=== PATIENT | female | born 1980 | race African-American/Black ===

== ENCOUNTER → 2021-03-14 12:46 | Outpatient (CLI) | payer OTHER, SELFPAY ==
--- NOTE | ~2021-03-14 | MM_ITS ---
EXAMINATION: MM screening marlyn BI w lo HISTORY: Screening TECHNIQUE: Craniocaudal and mediolateral oblique 3-D tomosynthesis images were obtained and synthetic 2-D images were generated. CAD analysis was submitted and interpreted. COMPARISON: No prior mammogram is available for comparison at this institution. BREAST PARENCHYMAL COMPOSITION: There are scattered areas of fibroglandular density. FINDINGS: There is no evidence of suspicious mass, calcification, or architectural distortion to sugg est malignancy in either breast. There has been no suspicious interval change. IMPRESSION: 1. No mammographic evidence of malignancy. 2. Recommend routine screening mammography in one year. BI-RADS Category 1: Negative Reviewed, dictated and finalized at location B. [employer]
--- NOTE | ~2021-03-14 | XR_ITS ---
EXAMINATION: XR thoracic spine 2V DATE: 03/14/2021 13:14 INDICATION: Dorsalgia. TECHNIQUE: 3 views of thoracic spine standing were obtained. COMPARISON: None. FINDINGS: There is 10 degrees dextroscoliosis of thoracic spine. Vertebral body heights and intervert ebral disc heights are normal. There are endplate osteophytes at most levels. There is developmental anterior and posterior fusion at C5-C6. There is moderate cervical spondylosis. IMPRESSION: 1. Mild thoracic spondylosis and moderate cervical spondylosis. 2. Thoracic dextroscoliosis. Reviewed, dictated and finalized at location A. [employer]
== END ==
PROVIDERS: PCP Family Medicine; Visit Provider Family Medicine
DX: Z12.31 Encounter for screening mammogram for malignant neoplasm of breast (principal); M47.894 Other spondylosis, thoracic region; M47.892 Other spondylosis, cervical region
CPT/HCPCS: 72070; 77063; 77067

== ENCOUNTER → 2022-01-16 09:06 | Outpatient (CLI) | payer OTHER, SELFPAY ==
--- NOTE | ~2022-01-16 | US_ITS ---
EXAMINATION: US pelvic complete w TV DATE: 01/16/2022 09:35 INDICATION: Excessive frequent menstruation Comparison:No prior studies for comparison. TECHNIQUE: Multiple transabdominal and endovaginal sonographic images of the pelvis performed. FINDINGS: The uterus measures 8.2 x 3.7 x 5.1 cm. There are multiple nabothian cysts. The endometrial complex measures 9 mm. The right ovary measures 3 x 1.2 x 1.5 cm and the left ovary measures 2.3 x 1.8 x 1.6 cm. There is a 1.7 cm right ovarian cyst. There are small follicles in each ovary. Normal doppler signal in both ova linda. There is trace free fluid in the pelvis. There are no abnormal masses seen on either side. IMPRESSION: 1. Right ovarian cyst measuring 1.7 cm. Reviewed, dictated and finalized at location B. [employer]
== END ==
PROVIDERS: PCP Student in an Organized Health Care Education/Training Program; Visit Provider Student in an Organized Health Care Education/Training Program
DX: N92.0 Excessive and frequent menstruation with regular cycle (principal); N83.201 Unspecified ovarian cyst, right side
CPT/HCPCS: 76830; 76856

== ENCOUNTER 2022-03-24 03:47 | Day surgery (SDC) | payer OTHER, SELFPAY ==
[2022-03-15 10:42] VITALS: BMI 47.5
--- NOTE | 2022-03-15 10:43 | PC.NURSE ---
Report to the Outpatient Waiting Room, entrance under the green pavilion located off [facility], at time _0600_ on date _03/24/22_. Planned Procedure Time: __07__. Time changes happen often and if your time is changed the preop area will call you the afternoon before. - You and your visitor will be asked to self-screen and do not enter if you have any COVID symptoms. - Only one visitor is requested with a max of two and NO children visitors are allowed at this time. - The patient visitor may be requested to leave or wait in car when not with patient due to distancing restrictions. - A mask is optional within the hospital. Patients may have clear liquids (water, carbonated beverages, clear teas, apple juice) until 3 hours prior to surgery with a maximum of 20 ounces. - No food from midnight until time of surgery - Infants may have breast milk until 4 hours before surgery, infant formula 6 hours prior to surgery. - Children will be allowed to drink immediately following surgery. If applicable, please bring a bottle or sippy cup to assist with drinking. Juice, water, soda, and popsicles are readily available. For infants on formula, please bring formula the day of surgery. Pacifiers are allowed. Take the following medications with a SIP of water the morning of surgery: __NO HOME MEDS ___ Medications to discontinue per physician _Vitamins or supplements 3 DAYS PRIOR___ Date to take last dose Please no make-up, nail sudanese, hairspray, perfume, deodorant, or body powder the day of surgery. No jewelry (including any body piercings) or valuables the day of surgery, leave them at home. Please take a shower or bath the night before, or the morning of, surgery with an antibacterial soap. Wear comfortable, loose fitting clothing. Children are encouraged to wear pajamas. - Jewelry must be removed prior to entering the operating room. Rings and piercings that are not removed may be cut off. - The hospital will not accept responsibility for valuables. - Please leave all valuables, including medications, at home the day of surgery. If you are going home after surgery, a licensed fence post driver must drive you home. - NO public transportation without another adult if you receive anesthesia. - We recommend that an adult stay with you for 24 hours following discharge. - We also recommend that you do not drive, make important decision, drink alcoholic beverages, or take any drugs that were not prescribed by your health care provider for at least 24 hours after your discharge time. For Pediatric surgeries, we recommend two adults accompany the child home. Follow any additional instructions given to you from your surgeon. If you or anyone in your household have experienced Covid symptoms in the past week, please notify your surgeon or the nurse liaison at the phone number below for possible testing. Telephone instructions given to _PATIENT_and asked if any additional questions and then verbalized understanding. Patient advised to call surgeon office or pre surgery nurse liaison [phone] if any additional questions.
--- NOTE | 2022-03-23 16:44 | PM.IMHP ---
H&P: [facility] History of Present Illness Date/Time: 03/23/22 16:44 Chief Complaint: Menorrhagia Complex endometrial hyperplasia Narrative: Patient with a history of menorrhagia. Endometrial biopsy performed as part of the evaluation showed complex hyperplasia without atypia. She has been informed of treatment options to include progesterone therapy versus dilation and currettage. She was recommended for D and C hysteroscopy which she agrees to proceed with this. Review of Systems Review of Systems: All systems reviewed & are unremarkable except as noted in HPI and below Constitutional: Constitutional: Reports no additional constitutional complaints Eyes: Eyes: Reports no additional eye complaints Cardiovascular: Cardiovascular: Reports no additional cardiovascular complaints Respiratory: Respiratory: Reports no additional respiratory complaints Gastrointestinal: Gastrointestinal: Reports no additional gastrointestinal complaints Genitourinary: Genitourinary: Reports no additional female genitourinary complaints and Reports as per HPI Integumentary/Breasts: Skin/Breast: Reports system reviewed and no additional complaints, except as docu Neurologic: Reports system reviewed and no additional complaints, except as documented Psychiatric: Psychiatric: Reports no additional psychiatric complaints Hematologic/Lymphatic: Hematologic/Lymphatic: Reports no additional hematologic/lymphatic complaints [facility] Past Medical History Medical History Left leg pain Surgical History Surgical History History of tonsillectomy Family History Family History Father Diabetes mellitus Hypertension Cerebrovascular accident Grandparent Diabetes mellitus Hypertension Family history of arthritis Social History Social History Smoking status: Smoker, status unknown Alcohol intake: current Drinks per week: 1 Substance use: never Substance use type: does not use Lack of Transportation: No Lack of Food: Never True Current Housing: I Have Housing Concerned About Future Housing: No Difficulty Paying Gas/Electric Bills: No Difficulty Paying for Meds: No Currently Unemployed: No Education: Bachelor's Degree Living arrangements: with family Spiritual care concerns: No Meds Home Medications and Allergies Allergies Allergy/AdvReac Type Severity Reaction Status Date / Time Penicillins Allergy unknown Verified 03/24/22 06:48 Exam Const: General: comfortable and no acute distress Orientation/consciousness: oriented to person, oriented to place and oriented to time Eyes: General: appearance normal, both eyes and all related structures Neck: Neck: normal visual inspection Resp: Effort & Inspection: normal respiratory effort Auscultation: clear to auscultation bilaterally Cardio: Rate: regular rate Rhythm: regular rhythm GI: Inspection: normal to inspection GI Palp: No abdominal tenderness and Yes No hepatosplenomegaly present : External Female Exam: normal external appearance Speculum Exam - Vagina: normal appearance of the vagina Speculum Exam - Cervix: normal appearance of the cervix Bimanual exam- vagina & uterus: normal bimanual exam, uterine mobility normal, uterine shape normal and non-tender Bimanual Exam- Adnexa, other: no masses and No adnexal tenderness Skin: General skin exam: normal color Neuro: General: oriented to person, oriented to place and oriented to time Psych: Appearance: grossly normal Assessment and Plan Assessment and plan (1) Complex endometrial hyperplasia: Code(s): N85.01 - Benign endometrial hyperplasia Status: Acute Assessment and Plan: Will perform D and C hysteroscopy possible Aveta if necessary.
[2022-03-24 06:32] VITALS: BP 133/78; PULSE 78; RESP 16; TEMP 36.3; O2SAT 100; BMI 47.2
[2022-03-24] MEDS: LACTATED RINGERS 1,000 ML 30 ML IV CONT (06:55)
[2022-03-24] MEDS: ACETAMINOPHEN 500 MG TABLET 1000 MG PO (07:06)
--- NOTE | 2022-03-24 07:12 | P.PNAN_ITS ---
Anes - Initial Pre Proc Eval Procedure: Operation Date: 03/24/22 07:30 Proposed Procedures p Hysteroscopy Dilation and Curettage with Aveta, Possible Fibroid Removal - Conor Paarda MD Date/Time: 03/24/22 07:12 Surgeon: Conor Parada MD Pre Op Diagnosis: complex hyperplasia Patient Data Age: 41 Gender: F Height: 1.65 m Weight: 129.7 kg Allergies Allergy/AdvReac Type Severity Reaction Status Date / Time Penicillins Allergy unknown Verified 03/24/22 06:48 Patient hx anesthesia problems: none Family hx anesthesia problems: none Results Review: All pre-operative results and documents have been reviewed as part of the pre- operative evaluation. [facility] Past Medical History Medical History Left leg pain Surgical History Surgical History History of tonsillectomy Family History Family History Father Diabetes mellitus Hypertension Cerebrovascular accident Grandparent Diabetes mellitus Hypertension Family history of arthritis Social History Social History Smoking status: Smoker, status unknown Alcohol intake: current Drinks per week: 1 Substance use: never Substance use type: does not use Lack of Transportation: No Lack of Food: Never True Current Housing: I Have Housing Concerned About Future Housing: No Difficulty Paying Gas/Electric Bills: No Difficulty Paying for Meds: No Currently Unemployed: No Education: Bachelor's Degree Living arrangements: with family Spiritual care concerns: No Anes - Eval Final PreProcedure Day of Procedure 03/24/22 07:12 Patient weight: morbidly obese Heart: regular rate and rhythm Lungs: decreased breath sounds Airway: Mallampati scale class III Neurological: alert and oriented Last oral intake: >/= 8 hours ASA classification: III Emergent: no Anesthetic plan: proceed Anesthesia type and monitoring: general GIVS and standard monitoring Results Review: All pre-operative results and documents have been reviewed as part of the pre- operative evaluation. Informed Consent: The patient's anesthetic plan and its attendant risks and benefits were discussed with the patient/family/POA. Questions were solicited and answers provided to the satisfaction of the patient/family/POA.
--- NOTE | 2022-03-24 07:22 | WPDHPUPDATE1 ---
History and Physical Update Update Date/Time: 03/24/22 07:22 History and Physical has been reviewed, including an updated exam of the patient. There are NO changes in the patient's condition. Risks, benefits, and alternatives have been discussed and questions answered. Patient agrees to proceed with procedure.
[2022-03-24] MEDS: ceFAZolin 3 GM/D5W 100 ML 100 ML IVPB (07:30)
[2022-03-24] MEDS: LIDOCAINE HCL 1% PF 30 ML VIAL 10 ML INFILTRATE (07:48)
[2022-03-24 08:06] VITALS: BP 128/76; PULSE 97; RESP 14; O2SAT 95
[2022-03-24] MEDS: KETOROLAC 30 MG/ML VIAL (*BKC) IV PUSH (08:19)
--- NOTE | 2022-03-24 08:22 | W.PM.PROC2 ---
Procedure Note - Detailed Date of Procedure 03/24/22 Pre-op Diagnosis complex hyperplasia Post-op Diagnosis Other (Endometrial polypoid lesion) Procedure Performed Hysteroscopy with dilation and curretage and polypectomy. Surgeon oCnor Parada MD Anesthesia MAC (LMA) and Local Indications Menorrhagia with complex endometrial hyperplasia on endometrial biopsy. Findings Uterus sound to 7.5 cm, intracervical polyp and 2 polyps near endometrial cavity fundus. Total insufflation fluid 20-20 cc fluid deficit 130 cc. Description of Procedure After informed consent was obtained patient was taken to the operating room and adequate IV sedation was administered. She was placed in high lithotomy position and prepped and draped in sterile fashion. Attention was turned to the vagina speculum was inserted single-tooth tenaculum placed on anterior lip of the cervix 10 cc of 1% lidocaine was injected at the cervical vaginal interface at to 5 8 and 10 position. Cervix was dilated to an 8 Bond dilator. The uterus was sounded to 7.5 cm. The hysteroscope was inserted. There was noted to be a cervical polyp at the upper cervix and further assessment of the endometrial cavity showed what looked like several endometrial polyps. a stone forceps was inserted into the cervical canal and the cervical polyp was removed. The Aveta hysteroscopic instrument was then inserted and the polyps were removed. A curettage was then performed. single-tooth tenaculum taken off the cervix. Hemostasis was noted. Sponge count correct. Patient tolerated procedure well. Estimated Blood Loss 5 Drains No Packing No Pathology Yes ( Endometrial curettings with tissue removed with the Avita and cervical polyp) Complications No immediate complications Condition Stable Disposition Same day [facility] Billing Surgery - Charge Forward: Surgery Billing
[2022-03-24 08:30] VITALS: BP 147/106; PULSE 76; RESP 14; O2SAT 95
[2022-03-24] MEDS: oxyCODONE HCL (*CRX) 5 MG TAB IR PO (08:34)
[2022-03-24 09:00] VITALS: BP 133/70; PULSE 59; RESP 14
== END 2022-03-24 09:22 | disposition home or self-care (01) ==
PROVIDERS: PCP Family Medicine; Visit Provider Obstetrics & Gynecology
PROC: 0U5B8ZZ Destruction of Endometrium, Via Natural or Artificial Opening Endoscopic (ICD-10-PCS; CPT 58563; principal; 2022-03-24 07:30)
DX: N85.01 Benign endometrial hyperplasia (principal); N92.0 Excessive and frequent menstruation with regular cycle; N84.1 Polyp of cervix uteri; F17.200 Nicotine dependence, unspecified, uncomplicated; F10.90 Alcohol use, unspecified, uncomplicated; E66.01 Morbid (severe) obesity due to excess calories; Z68.42 Body mass index [BMI] 45.0-49.9, adult
CPT/HCPCS: 58558; 88305; A9270; J0690; J1885; J2250; J2405; J2704; J3010; J7120

== ENCOUNTER 2022-09-04 08:26 | Outpatient (CLI) | payer OTHER, SELFPAY | END 2022-09-04 08:27 | disposition home or self-care (01) | LOC: ANHSURGERY 08:30 | PROVIDERS: Visit Provider Obstetrics & Gynecology | DX: N85.02 Endometrial intraepithelial neoplasia [EIN] (principal) | CPT/HCPCS: 36415; 86850; 86900; 86901 ==

== ENCOUNTER 2022-09-08 03:54 | Day surgery (SDC) | payer OTHER, SELFPAY ==
[2022-08-30 15:03] VITALS: BMI 49.1
--- NOTE | 2022-08-30 15:08 | PC.NURSE ---
Report to the Outpatient Waiting Room, entrance under the green pavilion located off [facility], at time 6:00 on date 09/08/22. Planned Procedure Time: 7:30. Time changes happen often and if your time is changed the preop area will call you the afternoon before. - You and your visitor will be asked to self-screen and do not enter if you have any COVID symptoms. - A mask is optional within the hospital at this time. Patients may have clear liquids (water, carbonated beverages, clear teas, apple juice) until 3 hours prior to surgery with a maximum of 20 ounces. - No food from midnight until time of surgery Take the following medications with a SIP of water the morning of surgery: NONE DO NOT STOP ANY OF YOUR OTHER PRESCRIPTION MEDICATIONS PRIOR TO SURGERY ?EXCEPT THE FOLLOWING Medications to discontinue per physician: N/A Date to take last dose: N/A Please no make-up, nail syriac, hairspray, perfume, deodorant, or body powder the day of surgery. No jewelry (including any body piercings) or valuables the day of surgery, leave them at home. Please take a shower or bath the night before, or the morning of, surgery with an antibacterial soap. Wear comfortable, loose fitting clothing. - Jewelry must be removed prior to entering the operating room. Rings and piercings that are not removed may be cut off. - The hospital will not accept responsibility for valuables. - Please leave all valuables, including medications, at home the day of surgery. If you are going home after surgery, a licensed milk pickup truck driver must drive you home. - NO public transportation without another adult if you receive anesthesia. - We recommend that an adult stay with you for 24 hours following discharge. - We also recommend that you do not drive, make important decision, drink alcoholic beverages, or take any drugs that were not prescribed by your health care provider for at least 24 hours after your discharge time. Follow any additional instructions given to you from your surgeon. If you or anyone in your household have experienced Covid symptoms in the past week, please notify your surgeon or the nurse liaison at the phone number below for possible testing. Telephone instructions given to PT - TREVON SHEPPARD and asked if any additional questions and then verbalized understanding. Patient advised to call surgeon office or pre surgery nurse liaison [phone] if any additional questions.
--- NOTE | 2022-09-07 16:06 | PM.IMHP ---
H&P: HPI History of Present Illness Date/Time: 09/07/22 16:06 Chief Complaint: Complex hyperplasia Narrative: She is a 41-year-old G0 with history of menorrhagia. She has had a prior D and C which showed complex hyperplasia. She had a subsequent follow-up endometrial biopsy after 3 months and this endometrial biopsy showed complex endometrial hyperplasia with atypia. She is aware this is a precancerous condition and she was offered hysterectomy due to the precancerous lesion which she agreed to. We have also discussed progesterone therapy. Review of Systems Review of Systems: All systems reviewed & are unremarkable except as noted in HPI and below Cardiovascular: Cardiovascular: Reports no additional cardiovascular complaints, Denies chest pain and Denies dyspnea Respiratory: Respiratory: Reports no additional respiratory complaints and Denies dyspnea Gastrointestinal: Gastrointestinal: Reports abdominal pain, Denies change in bowel habits, Denies diarrhea, Denies nausea and Denies vomiting Genitourinary: Genitourinary: Reports pelvic pain Musculoskeletal: Musculoskeletal: Reports back pain Integumentary/Breasts: Skin/Breast: Reports system reviewed and no additional complaints, except as docu Neurologic: Reports system reviewed and no additional complaints, except as documented [facility] Past Medical History Medical History Left leg pain Surgical History Surgical History History of tonsillectomy Family History Family History Father Diabetes mellitus Hypertension Cerebrovascular accident Grandparent Diabetes mellitus Hypertension Family history of arthritis Social History Social History Smoking status: Never smoker Alcohol intake: current Drinks per week: 3 Substance use: current Substance use type: marijuana Lack of Transportation: No Lack of Food: Never True Current Housing: I Have Housing Concerned About Future Housing: No Difficulty Paying Gas/Electric Bills: No Difficulty Paying for Meds: No Currently Unemployed: No Education: Bachelor's Degree Living arrangements: with family Spiritual care concerns: No Meds Home Medications and Allergies Home Medications Medication Instructions Recorded Confirmed Type progesterone micronized 100 mg 100 mg PO QAM 30 days #30 caps 07/07/22 08/30/22 Rx capsule (Prometrium) scopolamine base 1 mg over 3 days 1 patch transdermal ONCE #1 ea 08/21/22 08/30/22 Rx transdermal patch Allergies Allergy/AdvReac Type Severity Reaction Status Date / Time Penicillins Allergy unknown Verified 08/30/22 15:02 Exam Const: Orientation/consciousness: oriented to person and oriented to place HENMT: Head: normal to inspection Eyes: General: appearance normal, both eyes and all related structures Resp: Effort & Inspection: normal respiratory effort Auscultation: clear to auscultation bilaterally Cardio: Rate: regular rate Rhythm: regular rhythm GI: Inspection: normal to inspection GI Palp: No Rebound tenderness present Neuro: General: oriented to person and oriented to place Cognition (Neuro): normal cognition Extrem: General: normal to inspection Psych: Appearance: grossly normal and well kempt Assessment and Plan Assessment and plan (1) Complex endometrial hyperplasia with atypia: Code(s): N85.02 - Endometrial intraepithelial neoplasia [EIN] Status: Acute Assessment and Plan: Will proceed with robotic assisted laparoscopic total vaginal hysterectomy with bilateral salpingectomy and possible removal of one or both ovaries if deemed necessary.
[2022-09-08] VITALS (9 sets, daily range): BP systolic 108–139; BP diastolic 58–73; PULSE 58–94; RESP 14–24; TEMP 35.9–37.5; O2SAT 94–100
--- NOTE | 2022-09-08 06:53 | WPDANESEPPF ---
Anes - Initial Pre Proc Eval Procedure: Operation Date: 09/08/22 07:30 Proposed Procedures p Robotic Total Vaginal Hysterectomy with Bilateral Salpingectomy, Possible Bilateral Oophorectomy - Conor Parada MD Date/Time: 09/08/22 06:53 Surgeon: Conor Parada MD Pre Op Diagnosis: complex hyperplasia with atypia Patient Data Age: 41 Gender: F Height: 1.65 m Weight: 133.85 kg Allergies Allergy/AdvReac Type Severity Reaction Status Date / Time Penicillins Allergy unknown Verified 08/30/22 15:02 Home Medications Medication Instructions Recorded Confirmed Type progesterone micronized 100 mg 100 mg PO QAM 30 days #30 caps 07/07/22 08/30/22 Rx capsule (Prometrium) scopolamine base 1 mg over 3 days 1 patch transdermal ONCE #1 ea 08/21/22 08/30/22 Rx transdermal patch Patient hx anesthesia problems: none Family hx anesthesia problems: none Results Review: All pre-operative results and documents have been reviewed as part of the pre-operative evaluation. [facility] Past Medical History Medical History (Updated 09/08/22 @ 06:53 by Jatinder Anton MD) Left leg pain Morbid obesity Surgical History Surgical History History of tonsillectomy Family History Family History Father Diabetes mellitus Hypertension Cerebrovascular accident Grandparent Diabetes mellitus Hypertension Family history of arthritis Social History Social History Smoking status: Never smoker Alcohol intake: current Drinks per week: 3 Substance use: current Substance use type: marijuana Lack of Transportation: No Lack of Food: Never True Current Housing: I Have Housing Concerned About Future Housing: No Difficulty Paying Gas/Electric Bills: No Difficulty Paying for Meds: No Currently Unemployed: No Education: Bachelor's Degree Living arrangements: with family Spiritual care concerns: No Anes - Eval Final PreProcedure Day of Procedure 09/08/22 06:53 Patient weight: normal Heart: regular rate and rhythm Lungs: clear to auscultation Airway: Mallampati scale class II Neurological: alert and oriented Last oral intake: >/= 8 hours ASA classification: III Emergent: no Anesthetic plan: proceed Anesthesia type and monitoring: general ETT and standard monitoring Results Review: All pre-operative results and documents have been reviewed as part of the pre-operative evaluation. Informed Consent: The patient's anesthetic plan and its attendant risks and benefits were discussed with the patient/family/POA. Questions were solicited and answers provided to the satisfaction of the patient/family/POA.
--- NOTE | 2022-09-08 07:11 | WPDHPUPDATE1 ---
History and Physical Update Update Date/Time: 09/08/22 07:11 History and Physical has been reviewed, including an updated exam of the patient. There are NO changes in the patient's condition. Risks, benefits, and alternatives have been discussed and questions answered. Patient agrees to proceed with procedure.
[2022-09-08] MEDS: LACTATED RINGERS 1,000 ML 30 ML IV CONT ×2 (07:15→10:32)
[2022-09-08] MEDS: KETOROLAC 15 MG/ML VIAL (*BKC) IV PUSH (07:15)
[2022-09-08] MEDS: ACETAMINOPHEN 500 MG TABLET 1000 MG PO (07:15)
[2022-09-08] MEDS: ceFAZolin 3 GM/D5W 100 ML 100 ML IVPB (07:30)
[2022-09-08] MEDS: BUPivacaine HCL 0.5% PF 30 ML VIAL 20 ML INFILTRATE (08:33)
--- NOTE | 2022-09-08 10:17 | PM.OP ---
Procedure Note - Brief Procedure Note - Brief Date of procedure: 09/08/22 complex hyperplasia with atypia Post-op diagnosis: Same Procedure performed: Laparoscopic assisted laparoscopic total vaginal hysterectomy with bilateral salpingectomy and left oophorectomy. Lysis of adhesions. Surgeon: Conor Parada MD Anesthesia: GETA Estimated blood loss (mL): 100 IV fluids (mL): 1,000 Urine output (mL): 400 Drains: No Packing: No Pathology: Yes (uterus with cervix and right fallopian tube and left ovary) Complications: No immediate complications Condition: Stable Disposition: PACU
[2022-09-08] MEDS: fentaNYL CITRATE INJ (*CRX) 100 MCG/2 ML VIAL 25 MCG IV PUSH ×8 (10:40→11:25)
--- NOTE | 2022-09-08 10:44 | W.PM.PROC2 ---
Procedure Note - Detailed Date of Procedure 09/08/22 Pre-op Diagnosis complex hyperplasia with atypia Post-op Diagnosis Same Procedure Performed Laparoscopic robotic assisted total vaginal hysterectomy with bilateral salpingectomy and right oophorectomy Surgeon Conor Parada MD Anesthesia General Indications Endometrial biopsy with complex endometrial hyperplasia with atypia Findings Normal appearing uterus normal fallopian tubes and ovaries there was some adhesions of the left fallopian tube to the pelvic sidewall there was noted to be a 3 cm ovarian cyst on the left ovary this was ruptured during procedure and had some bleeding and the ovary was removed. Description of Procedure After informed consent was obtained she was taken to the operating room and general endotracheal anesthesia was administered. She was placed in low lithotomy position. An exam under anesthesia was performed. Uterus palpated normal size, no adnexal masses palpated. She was and prepped and draped in sterile fashion. Crowell catheter placed in bladder. Attention was turned to the vagina speculum was inserted. Single-tooth tenaculum placed on anterior lip of the cervix the uterus sounded to 8cm. The cervix was dilated to a 8 Bond dilator. A size 8 uterine manipulator was inserted and secured. A size 3.0 colp cup was secured in the vagina. Then attention was turned to the abdomen with new sterile gloves. .5% marcaine injected subcutaneously. An incision was made horizontal 2 cm above the umbilicus. A Veress needle was inserted into the abdomen confirmation into the abdomen obtained with normal peritoneal pressures. A Pneumoperitoneum of 15 mm per mercury was obtained. No abdominal or pelvic adhesions noted. A small incision was made approximately 6 cm lateral to the port on the left side of the port. A size 8mm robotic port was inserted under laparoscopic visualization into the abdomen on the left side. Attention was turned to the right side of the abdomen and Marcaine was injected and an incision was made an 8 mm port was inserted under laparoscopic visualization. Superior to this Marcaine was used and an incision was made and the assistant sales director port was inserted under laparoscopic visualization. The right round ligament was ligated with vessel sealer. The anterior leaf of the broad ligament was dissected down anteriorly. The right side of the bladder was dissected from the lower uterine segment and upper cervix. The right fallopian tube was ligated from the broad ligament on the right side. The right ovarian ligament was ligated with the vessel sealer. The a posterior leaf of the broad ligament was further dissected. The ascending uterine vessels on the right were ligated. The uterine vessels were ligated. Attention was turned to the left round ligament which was ligated and the anterior leaf of the broad ligament was dissected anteriorly. The rest of the vesicouterine peritoneum was dissected off of the uterus. Once the bladder was dissected below the colp cup then the attention was turned to the left fallopian tube this was noted to be scarred lightly in the left pelvic sidewall the adhesions were lysed. The prox fallopian tube was then ligated from the broad ligament. The ovarian ligament was ligated. The right ovarian cyst was ruptured clear fluid was coming from it the area of rupture was cauterized. the ascending uterine vessels were ligated with the syncroseal. The uterine arteries were ligated. The cardinal ligaments were ligated. This was done on both sides. An incision was made anterior colpotomy incision was made and this was carried around until the cervix was removed from the vagina. The uterus and cervix were removed through the vagina. The vaginal cuff was closed in a running fashion with 0 V lock suture. The suture was started from both ends of the vaginal cuff. Hemostasis was noted. The pelvis was irrigated. Decision was made to remove the
--- NOTE | 2022-09-08 11:40 | PC.NURSE ---
This patient, Leonor Palmer, was received from PACU via bed on 09/08/22 at 1140. Patient/family oriented to unit policies and routines.
[2022-09-08] MEDS: DEXTROSE 5%/0.45% SOD CHL 1,000 ML 125 ML IV CONT (12:47)
[2022-09-08] MEDS: HYDROcodone/acetaminophen (*CRX) 5-325 MG TABLET 1 TAB PO ×3 (12:49→21:06)
[2022-09-08] MEDS: IBUPROFEN 600 MG TABLET PO ×2 (12:49→21:06)
[2022-09-08] MEDS: SENNA/DOCUSATE SODIUM TABLET 2 TAB PO (21:06)
[2022-09-09] MEDS: IBUPROFEN 600 MG TABLET PO ×2 (03:03→09:21)
[2022-09-09] MEDS: HYDROcodone/acetaminophen (*CRX) 5-325 MG TABLET 1 TAB PO ×5 (03:03→11:58)
[2022-09-09 03:10] VITALS: BP 114/70; PULSE 68; RESP 20; TEMP 36.8
[2022-09-09 06:50] VITALS: BP 124/60; PULSE 70; RESP 16; TEMP 36.7; O2SAT 100
--- NOTE | 2022-09-09 07:56 | WPDANESPN ---
Anes - Prog Note Post-Op Date/Time: 09/09/22 07:56 Cardiovascular status: normal Respiratory status: normal Airway patency: baseline Mental status: baseline Post-Op hydration status: normal Vital Signs: Last Vital Signs Temp 36.8 C 09/09/22 03:10 Pulse 68 09/09/22 03:10 Resp 20 09/09/22 03:10 BP 114/70 09/09/22 03:10 Pulse Ox 94 09/08/22 15:55 O2 Del Method Room Air 09/08/22 15:55 O2 Flow Rate 2 09/08/22 11:45 Pain Score (VAS): 210 I/O: Intake & Output 09/08/22 09/08/22 09/09/22 15:59 23:59 07:59 Intake Total 700 Output Total 1200 Balance -500 Post-procedural complaints: none Patient Feedback: Patient satisfied with anesthetic care.
--- NOTE | 2022-09-09 08:54 | PM.GYNPNOP ---
ELECTION WATCHER - A/P Assessment and plan (1) Post-op pain: Code(s): G89.18 - Other acute postprocedural pain Status: Acute Assessment and Plan: Doing well. Discharge home. Discharge precautions discussed. Postoperative Procedures: Procedures Operation Date: 09/08/22 07:30 Actual Procedure Side Surgeon p Robotic Total Vaginal Hysterectomy with Bilateral Salpingectomy, Left Oophorectomy Bilateral Conor Parada MD Time Spent With Patient Time: Total time spent is greater than 50% in coordination of care (as documented) at patient's floor/unit and/or counseling patient: Time with patient: less than 15 minutes ELECTION WATCHER- PN:Subj Post-Op Subjective Date/time seen: 09/09/22 08:54 Interval history: She denies pain, has ambulated and urinating without problems, no leg pain, no SOB or CP. Discussed her surgery findings with her. Tolerating regular diet. Exam Const: General: comfortable Resp: Effort & Inspection: normal respiratory effort : Other: incisions healing well, nondistended, nontender Neuro: General: patient oriented x3 Extrem: General: normal to inspection and no calf tenderness Psych: Appearance: grossly normal ELECTION WATCHER - PN: Obj Data Vital Signs Vital Signs: Vital Signs - 24 hr 09/08/22 10:32 09/08/22 10:45 09/08/22 11:00 Temperature 98.8 F Pulse Rate 73 72 94 Respiratory Rate 24 H 20 20 Blood Pressure 139/68 115/67 108/65 Pulse Oximetry 100 96 94 Oxygen Delivery Simple Face Mask Simple Face Mask Nasal Cannula Oxygen Flow Rate 8 8 3 09/08/22 11:15 09/08/22 11:30 09/08/22 11:45 Temperature Pulse Rate 75 78 Respiratory Rate 22 H 18 Blood Pressure 122/58 L 112/65 Pulse Oximetry 94 94 97 Oxygen Delivery Nasal Cannula Nasal Cannula Nasal Cannula Oxygen Flow Rate 3 3 2 09/08/22 11:45 09/08/22 13:30 09/08/22 15:55 Temperature 99.5 F 99.0 F Pulse Rate 76 86 Respiratory Rate 16 18 Blood Pressure 128/72 126/73 Pulse Oximetry 97 94 Oxygen Delivery Room Air Oxygen Flow Rate 09/08/22 15:55 09/08/22 21:00 09/09/22 03:10 Temperature 98.7 F 98.2 F Pulse Rate 67 68 Respiratory Rate 20 20 Blood Pressure 133/70 114/70 Pulse Oximetry Oxygen Delivery Room Air Oxygen Flow Rate 09/09/22 06:50 Temperature 98.0 F Pulse Rate 70 Respiratory Rate 16 Blood Pressure 124/60 Pulse Oximetry 100 Oxygen Delivery Oxygen Flow Rate Intake/Output Intake/Output: Intake & Output 09/06/22 09/07/22 09/08/22 09/09/22 23:59 23:59 23:59 23:59 Intake Total 700 Output Total 1200 Balance -500 Meds/Results Medications: Active Medications Generic Name Dose Route Start Last Admin Trade Name Freq PRN Reason Stop Dose Admin Hydrocodone Bitart/Acetaminophen 1 tab 09/08/22 10:19 Hydrocodone/Acetaminophen (*Crx) 10-325 Mg Tablet PO Q3H PRN Pain Rated 6 or Greater Hydrocodone Bitart/Acetaminophen 1 tab 09/08/22 10:19 09/09/22 06:39 Hydrocodone/Acetaminophen (*Crx) 5-325 Mg Tablet PO 1 tab Q3H PRN Administration Pain Rated 5 or Less Ibuprofen 600 mg 09/08/22 10:19 09/09/22 03:03 Ibuprofen 600 Mg Tablet PO 600 mg Q6H PRN Administration Cramping Senna/Docusate Sodium 2 tab 09/08/22 21:00 09/08/22 21:06 Senna/Docusate Sodium Tablet PO 2 tab HS WESLEY Administration
--- NOTE | 2022-09-09 08:57 | PM.DS ---
DS: Admitting Diagnosis Discharge Date 09/09/22 Admitting Diagnosis Complex endometrial hyperplasia with atypia DS: Discharge Diagnosis Discharge Diagnosis (1) Complex endometrial hyperplasia with atypia: Code(s): N85.02 - Endometrial intraepithelial neoplasia [EIN] Status: Acute DS: Summary Hospital Course Reason for hospitalization: hysterectomy Hospital Course: She was admitted for laparoscopic hysterectomy. She had an uncomplicated hysterectomy. She did well post op. She had adequate pain control, ambulated well, tolerated regular diet. she was discharged home on post day 1. Time Spent with Patient Time attestation: Total time spent providing and/or coordinating discharge services: DS: Data Data Completed and Pending Pending studies at discharge: Pending at discharge 09/08/22 09:23 Surgical [PTH] Routine Discharge Plan Discharge Patient Disposition: Home, Self-Care Discharge Instructions: May take over the counter Ibuprofen 600mg every six hours as needed. Patient Instructions: Laparoscopic Hysterectomy (DC), Vaginal Hysterectomy (DC) Follow-up/Referrals: Conor Parada MD [Physician] - Keep Reg. Scheduled Appt. Discharge Medications: New hydrocodone-acetaminophen 5-325 mg tablet 1 tablet PO Q3H PRN (Reason: pain) Qty: 20 0RF Discontinued progesterone micronized [Prometrium] 100 mg capsule 100 mg PO QAM 30 Days Qty: 30 2RF scopolamine base 1 mg over 3 days patch 3 day 1 patch transdermal ONCE Qty: 1 0RF Rx Instructions: Apply to the area below and behind the day prior to procedure.
--- NOTE | 2022-09-09 18:57 | PC.NURSE ---
1839 Patient's called to let RN know that the pharmacy her RX was sent to is not open ([facility] in [facility]) and that the RX was suppose to go to the [facility] in [address] RN to call Dr. Hung who is food production worker for Dr. Parada. [address] Hung, he sent in the pt's [place] 5mg PO (#10 quantity) pills to the correct pharmacy. Advised the pt's that the RX was sent and that per [facility] she may need to pay full reynolds because the insurance was already billed at the other [facility], pt has the right to ask for only a partial fill of the RX and picking machine operator the other script tomorrow at [facility] location. Pt's ok with plan.
== END 2022-09-09 12:10 | disposition home or self-care (01) ==
LOC: ANHSURGERY 06:10 → ANHOB2 14:52
PROVIDERS: Visit Provider Obstetrics & Gynecology
PROC: (CPT 58552; principal; 2022-09-08 07:30)
DX: C54.1 Malignant neoplasm of endometrium (principal); N83.202 Unspecified ovarian cyst, left side; N80.03 Adenomyosis of the uterus; N73.6 Female pelvic peritoneal adhesions (postinfective); G89.18 Other acute postprocedural pain; F12.90 Cannabis use, unspecified, uncomplicated
CPT/HCPCS: 58552; S2900; 88307; 88342; 99199; A9270; J0330; J0690; J1100; J1885; J2250; J2405; J2704; J2710; J3010; J7030; J7120

== ENCOUNTER 2023-05-21 08:35 | Outpatient (CLI) | payer OTHER, SELFPAY ==
--- NOTE | ~2023-05-21 | MM_ITS ---
EXAMINATION: MM screening marlyn BI w lo HISTORY: Screening mammogram TECHNIQUE: Craniocaudal and mediolateral oblique 3-D tomosynthesis images were obtained and synthetic 2-D images were generated. CAD analysis was submitted and interpreted. COMPARISON: 03/14/2021 bilateral screening mammogram BREAST PARENCHYMAL COMPOSITION: The breasts are almost entirely fatty. FINDINGS: There is no evidence of suspicious mass, calcification, or architectural distortion to sugg est malignancy in either breast. There has been no suspicious interval change. IMPRESSION: 1. No mammographic evidence of malignancy. 2. Recommend routine screening mammography in one year. BI-RADS Category 1: Negative Reviewed, dictated and finalized at location A.
== END 2023-05-21 08:36 ==
PROVIDERS: Visit Provider Obstetrics & Gynecology
DX: Z12.31 Encounter for screening mammogram for malignant neoplasm of breast (principal)
CPT/HCPCS: 77063; 77067

== ENCOUNTER 2024-05-26 10:35 | Outpatient (CLI) | payer OTHER, SELFPAY ==
--- NOTE | ~2024-05-26 | MM_ITS ---
EXAMINATION: MM screening marlyn BI w lo HISTORY: Screening TECHNIQUE: Craniocaudal and mediolateral oblique 3-D tomosynthesis images were obtained and synthetic 2-D images were generated. CAD analysis was submitted and interpreted. COMPARISON: Comparison to multiple prior studies sequentially, with oldest reviewed study dated 03/14. BREAST PARENCHYMAL COMPOSITION: Not dense: There are scattered areas of fibroglandular density. FINDINGS: There is no evidence of suspicious mass, calcification, or architectural distortion to sugg est malignancy in either breast. There has been no suspicious interval change. IMPRESSION: 1. No mammographic evidence of malignancy. 2. Recommend routine screening mammography in one year. BI-RADS Category 1: Negative Reviewed, dictated and finalized at location A.
== END 2024-05-26 10:36 | disposition home or self-care (01) ==
LOC: MICIMG 10:36
PROVIDERS: PCP Obstetrics & Gynecology; Visit Provider Obstetrics & Gynecology
DX: Z12.31 Encounter for screening mammogram for malignant neoplasm of breast (principal)
CPT/HCPCS: 77063; 77067